=== PATIENT | male | born 1995 | race African-American/Black ===

== ENCOUNTER 2019-02-04 21:27 | Emergency (ER) | payer BC ==
--- NOTE | 2019-02-04 21:53 | EDPHY ---
H & P Stated Complaint: heart palpations with SOB started 1.5 hours [employer] Time Seen by Provider: 02/04/19 21:53 HPI/ROS: HPI CHIEF COMPLAINT: Palpitations. Lightheadedness. HISTORY OF PRESENT ILLNESS: Patient is a 23-year-old male, otherwise healthy presents emergency room with lightheadedness and palpitations since resolved since arriving. He states he was in his room resting in no acute distress, not doing anything physical developed palpitations. He felt lightheaded with this. He states his heart rate was fast. He denies any chest pain, chest pressure, shortness of breath, denies vomiting or nausea jaw pain or headache or neck pain or arm pain. He reports to me that he has had this 2 other times in [place] was actually hospitalized for he reports that he was diagnosed with AFib but not on any rate control medication or anticoagulants. Past Medical History: History of AFib. Past Surgical History: No recent surgical history but has a history of knee and hernia surgery. Social History: Denies drugs alcohol tobacco. [employer] student. Family History: Noncontributory. ROS REVIEW OF SYSTEMS: 10 Systems were reviewed and negative with the exception of the elements mentioned in the history of present illness. Exam Constitutional triage nursing summary reviewed, vital signs reviewed, awake/ alert. Eyes normal conjunctivae and sclera, EOMI, PERRLA. HENT normal inspection, atraumatic, moist mucus membranes, no epistaxis, neck supple/ no meningismus, no raccoon eyes. Respiratory clear to auscultation bilaterally, normal breath sounds, no respiratory distress, no wheezing. Cardiovascular rate normal, regular rhythm, no murmur, no edema, distal pulses normal. Gastrointestinal soft, non-tender, no rebound, no guarding, normal bowel sounds, no distension, no pulsatile mass. Genitourinary no CVA tenderness. Musculoskeletal no midline vertebral tenderness, full range of motion, no calf swelling, no tenderness of extremities, no meningismus, good pulses, neurovascularly intact. Skin pink, warm, & dry, no rash, skin atraumatic. Neurologic awake, alert and oriented x 3, AAOx3, moves all 4 extremities equally, motor intact, sensory intact, CN II-XII intact, normal cerebellar, normal vision, normal speech. Psychiatric normal mood/affect. Heme/Lymph/Immune no lymphadenopathy. Differential Diagnosis: Differential diagnosis includes but is not limited to: ACS, atypical chest pain, pneumothorax, pneumonia, pulmonary embolism, aortic dissection, congestive heart failure, tumor, musculoskeletal pain, esophageal pain, GERD, peptic ulcer disease, pancreatitis Medical Decision Making: Plan for this patient IV establishment IV fluid bolus , EKG, troponin, electrolytes, chest x-ray, and re-evaluate. Re-evaluation: EKG interpretation by me on record in [employer] system. Impression time of EKG 2138, sinus rhythm rate of 82 without any signs of acute ischemia. No signs of cardiac arrhythmia. ED x-ray chest one view: Negative for acute cardiopulmonary disease image interpreted by myself. 1:47 a.m. patient is asking to be discharged. He states he is eager to be discharged he has a mid term tomorrow. EKG interpretation by me on record in [employer] system. Impression time of EKG this is a repeat EKG 1:45 a.m. Sinus rhythm rate of 84 no signs of acute ischemia unremarkable nonischemic EKG. Patient had a 2nd troponin that is 0.00. Patient re-evaluated 2:42 a.m. Resting comfortably no acute distress and asking for discharge. I highly encouraged patient to be followed up closely with Cardiology for palpitations could be intermittent AFib is he has a history of this. He agrees for this plan and is requesting discharge. We discussed return precautions return emergency room if develops worsening chest pain, shortness of breath, fever, palpitations, fast heart rate, syncope. Source: Patient - Personal History Current Tetanus/Diphtheria Vaccine: Yes Current Tetanus Diphtheria and Acellular Pertussis (TDAP): Yes - Medical/Surgical History Hx Asthma: Yes Hx Chronic Respiratory Disease: No Hx Diabetes: No Hx Cardiac Disease: No Hx Renal Disease: No Hx Cirrhosis: No Hx Alcoholism: No Hx HIV/AIDS: No Hx Splenectomy or Spleen Trauma: No Other PMH: afib, left knee surgery, hernia, asthma - Social History Smoking Status: Never smoked Constitutional: Initial Vital Signs Temperature (C) 36.7 C 02/04/19 21:30 Heart Rate 90 02/04/19 21:30 Respiratory Rate 16 02/04/19 21:30 Blood Pressure 151/96 H 02/04/19 21:30 O2 Sat (%) 95 02/04/19 21:30 O2 Delivery Mode Room Air Allergies/Adverse Reactions: No Known Allergies Allergy (Unverified 02/04/19 21:33) Home Medications: Medication Instructions Recorded NK [No Known Home Meds] 02/04/19 Medical Decision Making - Diagnostics Imaging Results: Imaging Impressions Chest X-Ray 02/04/19 22:00 Impression: No acute cardiopulmonary process. - Data Points Laboratory Results: Laboratory Results 02/04/19 21:50 02/04/19 21:50 02/05/19 02/04/19 02/04/19 02:00 22:09 21:50 WBC RBC Hgb Hct MCV MCH MCHC RDW Plt Count MPV Neut % (Auto) Lymph % (Auto) [place] % (Auto) Eos % (Auto) Baso % (Auto) Nucleat RBC Rel Count Absolute Neuts (auto) Absolute Lymphs (auto) Absolute Monos (auto) Absolute Eos (auto) Absolute Basos (auto) Absolute Nucleated RBC Immature Gran % Immature Gran # PT INR APTT Sodium 133 mEq/L L mEq/L (135-145) Potassium 4.3 mEq/L mEq/L (3.5-5.2) Chloride 99 mEq/L mEq/L (97-110) Carbon Dioxide 23 mEq/l mEq/l (22-31) Anion Gap 11 mEq/L mEq/L (6-14) BUN 11 mg/dL mg/dL (7-23) Creatinine 0.8 mg/dL mg/dL (0.7-1.3) Estimated GFR > 60 Glucose 129 mg/dL H mg/dL (70-100) Calcium 9.4 mg/dL mg/dL (8.5-10.4) Magnesium 2.0 mg/dL mg/dL (1.6-2.3) POC Troponin I 0.00 ng/mL ng/mL 0.00 ng/mL ng/mL (0.00-0.08) (0.00-0.08) NT-Pro-B Natriuret Pep < 11 pg/mL pg/mL (0-125) 02/04/19 02/04/19 21:50 21:50 WBC 8.00 10^3/uL 10^3/uL (3.80-9.50) RBC 5.68 10^6/uL 10^6/uL (4.40-6.38) Hgb 15.6 g/dL g/dL (13.7-17.5) Hct 45.0 % % (40.0-51.0) MCV 79.2 fL L fL (81.5-99.8) MCH 27.5 pg L pg (27.9-34.1) MCHC 34.7 g/dL g/dL (32.4-36.7) RDW 12.4 % % (11.5-15.2) Plt Count 230 10^3/uL 10^3/uL (150-400) MPV 11.0 fL fL (8.7-11.7) Neut % (Auto) 50.8 % % (39.3-74.2) Lymph % (Auto) 39.0 % % (15.0-45.0) [place] % (Auto) 7.5 % % (4.5-13.0) Eos % (Auto) 1.9 % % (0.6-7.6) Baso % (Auto) 0.5 % % (0.3-1.7) Nucleat RBC Rel Count 0.0 % % (0.0-0.2) Absolute Neuts (auto) 4.07 10^3/uL 10^3/uL (1.70-6.50) Absolute Lymphs (auto) 3.12 10^3/uL H 10^3/uL (1.00-3.00) Absolute Monos (auto) 0.60 10^3/uL 10^3/uL (0.30-0.80) Absolute Eos (auto) 0.15 10^3/uL 10^3/uL (0.03-0.40) Absolute Basos (auto) 0.04 10^3/uL 10^3/uL (0.02-0.10) Absolute Nucleated RBC 0.00 10^3/uL 10^3/uL (0-0.01) Immature Gran % 0.3 % % (0.0-1.1) Immature Gran # 0.02 10^3/uL 10^3/uL (0.00-0.10) PT 13.3 SEC SEC (12.0-15.0) INR 1.05 (0.83-1.16) APTT 30.3 SEC SEC (23.0-38.0) Sodium Potassium Chloride Carbon Dioxide Anion Gap BUN Creatinine Estimated GFR Glucose Calcium Magnesium POC Troponin I NT-Pro-B Natriuret Pep Medications Given: Discontinued Medications Sodium Chloride (Ns) 500 mls @ 1,000 mls/hr IV EDNOW ONE PRN Reason: Protocol Stop: 02/04/19 22:29 Last Admin: 02/04/19 22:04 Dose: 500 mls Point of Care Test Results: Chemistry 02/05/19 02/04/19 02:00 22:09 POC Troponin I 0.00 ng/mL ng/mL 0.00 ng/mL ng/mL (0.00-0.08) (0.00-0.08) Departure - Departure Disposition: Home, Routine, Self-Care Clinical Impression: Palpitations Condition: Good Instructions: Heart Palpitations (ED) Additional Instructions: 1. You need to follow up with Cardiology 2. Stay well-hydrated and rest. 3. Return to the emergency room if develops worsening symptoms this includes fast heart rate, chest pain, shortness of breath Referrals: NONE *PRIMARY CARE P,. [Primary Care Provider] - As per Instructions Heber Huff MD [Medical Doctor] - As per Instructions
[2019-02-04] MEDS ORDERED: NS 500 ML IV ONE (22:00)
[2019-02-04 22:09] LABS: PLATELET COUNT 230 10^3/uL (150-400)
[2019-02-04 22:15] LABS: INR 1.05 (0.83-1.16); PROTIME(PATIENT) 13.3 SEC (12.0-15.0)
[2019-02-05 02:28] VITALS: BP 156/94
--- NOTE | 2019-02-06 07:46 | CPEKG ---
Test Reason : OPEN Blood Pressure : / mmHG Vent. Rate : 084 BPM Atrial Rate : 083 BPM P-R Int : 170 ms QRS Dur : 102 ms QT Int : 379 ms P-R-T Axes : 051 025 013 degrees QTc Int : 449 ms Sinus rhythm Confirmed by Ab Sainz ([id number]) on 02/06/2019 7:45:57 AM Referred By: Ab Sainz Confirmed By:Ab Sainz
--- NOTE | 2019-02-06 07:47 | CPEKG ---
Test Reason : OPEN Blood Pressure : / mmHG Vent. Rate : 082 BPM Atrial Rate : 083 BPM P-R Int : 164 ms QRS Dur : 104 ms QT Int : 361 ms P-R-T Axes : 058 037 023 degrees QTc Int : 422 ms Sinus rhythm Confirmed by Ab Sainz ([id number]) on 02/06/2019 7:45:59 AM Referred By: Ab Sainz Confirmed By:Ab Sainz
== END 2019-02-05 02:49 | disposition home or self-care (01) ==
DX: R00.2 Palpitations (principal); R42 Dizziness and giddiness
CPT/HCPCS: 84484-ER

== ENCOUNTER 2019-02-16 20:58 | Emergency (ER) | payer BC ==
[2019-02-16 21:58] LABS: PLATELET COUNT 234 10^3/uL (150-400)
[2019-02-16 22:22] VITALS: BP 132/90
--- NOTE | 2019-02-16 22:29 | EDPHY ---
H & P Time Seen by Provider: 02/16/19 21:23 HPI/ROS: CHIEF COMPLAINT: Palpitation and chest tightness HISTORY OF PRESENT ILLNESS: 23-year-old male states about 45 min ago he developed a brief episode of palpitations followed by some chest tightness. Patient has had the symptoms before and reports that he has a history of paroxysmal atrial fibrillation. Sounds like he was hospitalized twice in the past and diagnosed with atrial fibrillation. Reports he was prescribed anticoagulants but is not taking them. No lightheadedness or dizziness, no nausea or vomiting, sensation of palpitations has resolved, and just has some vague chest tightness. No fevers, chills, vomiting or diarrhea. Patient was in the emergency department several weeks ago similar symptoms. REVIEW OF SYSTEMS: A comprehensive 10 system review of systems was reviewed and is otherwise negative aside from elements mentioned in the history of present illness and medical decision making. PAST MEDICAL HISTORY: Atrial fibrillation. Sickle cell trait. SOCIAL HISTORY: Denies smoking, alcohol, marijuana. Has not followed up with Cardiology. VITAL SIGNS: see nurse's notes. GENERAL: Well-developed, well-nourished, overweight male, pleasant, no obvious distress. HEENT: Atraumatic. Eyes: No injection or icterus. Oropharynx: No erythema , no injection, no swelling. Neck: No JVD, no bruits, supple with no adenopathy. LUNGS: Clear to auscultation bilaterally, no wheezes, rhonchi or rales. CARDIAC: Regular rate and rhythm, no murmurs, no rubs, no gallops. ABDOMEN: Soft, nontender, nondistended, bowel sounds normal. BACK: No CVA tenderness. EXTREMITIES: No trauma. No clubbing, cyanosis or edema. Range of motion is normal throughout. NEURO: Alert and oriented , grossly nonfocal. SKIN: No diaphoresis, warm and dry, no rash. Smoking Status: Never smoked Constitutional: Initial Vital Signs Temperature (C) 37.1 C 02/16/19 21:00 Heart Rate 84 02/16/19 21:00 Respiratory Rate 20 02/16/19 21:00 Blood Pressure 146/95 H 02/16/19 21:00 O2 Sat (%) 96 02/16/19 21:00 O2 Delivery Mode Room Air Allergies/Adverse Reactions: No Known Allergies Allergy (Unverified 02/16/19 21:00) Home Medications: Medication Instructions Recorded NK [No Known Home Meds] 02/04/19 Medical Decision Making - Diagnostics EKG Interpretation: 12-LEAD EKG: Please see the full report in [employer]. My interpretation: Normal sinus rhythm ED Course/Re-evaluation: IV established. Monitor demonstrates normal sinus rhythm. Laboratory evaluation including chemistries and troponin were normal. D-dimer was negative. Patient's chest tightness resolved on its own. Chart reviewed from prior visit. At that time patient had negative troponins while in the emergency department. He was referred to Cardiology. Discussion held with the patient again regarding the importance of follow-up with Cardiology for probable Holter monitoring and further evaluation of his episodic palpitations. We discussed the risks of stroke, thromboembolic disease, syncope, coronary artery disease, development of heart failure. Differential Diagnosis: Differential diagnoses for the patient's sensation of palpitations was considered including but not limited to sinus tachycardia, PACs, PVCs, SVT, atrial fibrillation, atrial flutter, anxiety, panic attack. - Data Points Laboratory Results: Laboratory Results 02/16/19 21:50 02/16/19 21:50 02/16/19 02/16/19 02/16/19 21:51 21:50 21:50 WBC RBC Hgb Hct MCV MCH MCHC RDW Plt Count MPV Neut % (Auto) Lymph % (Auto) [place] % (Auto) Eos % (Auto) Baso % (Auto) Nucleat RBC Rel Count Absolute Neuts (auto) Absolute Lymphs (auto) Absolute Monos (auto) Absolute Eos (auto) Absolute Basos (auto) Absolute Nucleated RBC Immature Gran % Immature Gran # D-Dimer 0.40 ug/mLFEU ug/mLFEU (0.00-0.50) Sodium 134 mEq/L L mEq/L (135-145) Potassium 4.2 mEq/L mEq/L (3.5-5.2) Chloride 98 mEq/L mEq/L (97-110) Carbon Dioxide 24 mEq/l mEq/l (22-31) Anion Gap 12 mEq/L mEq/L (6-14) BUN 14 mg/dL mg/dL (7-23) Creatinine 0.8 mg/dL mg/dL (0.7-1.3) Estimated GFR > 60 Glucose 83 mg/dL mg/dL (70-100) Calcium 9.7 mg/dL mg/dL (8.5-10.4) POC Troponin I 0.00 ng/mL ng/mL (0.00-0.08) 02/16/19 21:50 WBC 7.81 10^3/uL 10^3/uL (3.80-9.50) RBC 6.00 10^6/uL 10^6/uL (4.40-6.38) Hgb 16.3 g/dL g/dL (13.7-17.5) Hct 47.3 % % (40.0-51.0) MCV 78.8 fL L fL (81.5-99.8) MCH 27.2 pg L pg (27.9-34.1) MCHC 34.5 g/dL g/dL (32.4-36.7) RDW 12.4 % % (11.5-15.2) Plt Count 234 10^3/uL 10^3/uL (150-400) MPV 10.8 fL fL (8.7-11.7) Neut % (Auto) 50.7 % % (39.3-74.2) Lymph % (Auto) 40.6 % % (15.0-45.0) [place] % (Auto) 5.9 % % (4.5-13.0) Eos % (Auto) 1.9 % % (0.6-7.6) Baso % (Auto) 0.6 % % (0.3-1.7) Nucleat RBC Rel Count 0.0 % % (0.0-0.2) Absolute Neuts (auto) 3.96 10^3/uL 10^3/uL (1.70-6.50) Absolute Lymphs (auto) 3.17 10^3/uL H 10^3/uL (1.00-3.00) Absolute Monos (auto) 0.46 10^3/uL 10^3/uL (0.30-0.80) Absolute Eos (auto) 0.15 10^3/uL 10^3/uL (0.03-0.40) Absolute Basos (auto) 0.05 10^3/uL 10^3/uL (0.02-0.10) Absolute Nucleated RBC 0.00 10^3/uL 10^3/uL (0-0.01) Immature Gran % 0.3 % % (0.0-1.1) Immature Gran # 0.02 10^3/uL 10^3/uL (0.00-0.10) D-Dimer Sodium Potassium Chloride Carbon Dioxide Anion Gap BUN Creatinine Estimated GFR Glucose Calcium POC Troponin I Point of Care Test Results: Chemistry 02/16/19 21:51 POC Troponin I 0.00 ng/mL ng/mL (0.00-0.08) Departure - Departure Disposition: Home, Routine, Self-Care Clinical Impression: Chest pain Qualifiers: Chest pain type: unspecified Qualified Code(s): R07.9 - Chest pain, unspecified Atrial fibrillation Qualifiers: Atrial fibrillation type: paroxysmal Qualified Code(s): I48.0 - Paroxysmal atrial fibrillation Condition: Good Instructions: A-fib (Atrial Fibrillation) (ED), Chest Pain (ED) Additional Instructions: It is very important that you follow up with [facility] as previously directed. If you are having intermittent episodes of atrial fibrillation, you are at high risk for blood clot or stroke. A holter monitor may be necessary. Be sure that with the baby formula worker know that this is an emergency department follow-up visit. Referrals: NONE *PRIMARY CARE P,. [Primary Care Provider] - As per Instructions Donis Sandhu MD [Medical Doctor] - As per Instructions (Please call for an appointment. Be sure that they know this is an emergency department follow-up visit)
== END 2019-02-16 22:40 | disposition home or self-care (01) ==
DX: R07.9 Chest pain, unspecified (principal); I48.0 Paroxysmal atrial fibrillation; D57.3 Sickle-cell trait
CPT/HCPCS: 84484-ER